=== PATIENT | male | born 1995 | race African-American/Black ===

== ENCOUNTER 2018-08-25 13:36 | Emergency (ER) | payer SELFPAY ==
[2018-08-25] MEDS ORDERED: Azithromycin 250 MG TAB ONE (13:59)
[2018-08-25] MEDS ORDERED: Lidocaine 1% PF 5 ML VIAL ONE (13:59)
[2018-08-25] MEDS ORDERED: cefTRIAXone\\ROCEPHIN 500 MG VIAL ONE (13:59)
[2018-08-27 01:09] LABS: Chlam.trachomatis by PCR,Urine Not Detected (NotDetected)
== END 2018-08-25 14:12 | disposition home or self-care (01) ==
LOC: BURERS 13:36
DX: R36.9 Urethral discharge, unspecified (principal)
CPT/HCPCS: 87491; 87591; 96372; J0696; J2001